=== PATIENT | female | born 1960 | race Caucasian/White ===

== ENCOUNTER 2016-12-22 09:18 | Emergency (ER) | payer OTHER, MEDICAID ==
[2016-12-22 09:34] VITALS: BP 123/68; PULSE 80; RESP 16; TEMP 98.8; O2SAT 96
[2016-12-22] MEDS ORDERED: IBUPROFEN 600 MG TAB PO ONE (09:40)
[2016-12-22] MEDS ORDERED: LIDOCAINE 2% JELLY 5 ML TUBE TP ONE (09:40)
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
[2016-12-22] MEDS ORDERED: ACETAMINOPHEN 325 MG TAB PO ONE (10:54)
[2016-12-22] MEDS ORDERED: ACETAMINOPHEN 325 MG TAB ONE (11:03)
== END 2016-12-22 11:40 | disposition home or self-care (01) ==
LOC: CED 09:18
DX: S92.402A Displaced unspecified fracture of left great toe, initial encounter for closed fracture (principal); S92.902A Unspecified fracture of left foot, initial encounter for closed fracture; S80.02XA Contusion of left knee, initial encounter; S50.02XA Contusion of left elbow, initial encounter; S93.402A Sprain of unspecified ligament of left ankle, initial encounter; F17.200 Nicotine dependence, unspecified, uncomplicated; S90.812A Abrasion, left foot, initial encounter; S90.512A Abrasion, left ankle, initial encounter; S80.212A Abrasion, left knee, initial encounter; S50.312A Abrasion of left elbow, initial encounter; V28.4XXA Motorcycle driver injured in noncollision transport accident in traffic accident, initial encounter; Y92.410 Unspecified street and highway as the place of occurrence of the external cause; Y99.8 Other external cause status; Y93.55 Activity, bike riding
CPT/HCPCS: 73080; 73562; 73630; 99284; L4386

== ENCOUNTER → 2016-12-27 | Outpatient (CLI) | payer OTHER, MEDICAID | LOC: FIMAGING 09:13 | PROVIDERS: ATTEND Family Medicine | DX: M54.5 Low back pain (principal); M51.36 Other intervertebral disc degeneration, lumbar region; M54.12 Radiculopathy, cervical region ==

== ENCOUNTER 2016-12-29 10:14 | Emergency (ER) | payer OTHER, MEDICAID ==
[2016-12-29 10:28] VITALS: TEMP 98
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
[2016-12-29 11:28] VITALS: BP 111/59; PULSE 70; RESP 16; O2SAT 93
== END 2016-12-29 11:17 | disposition home or self-care (01) ==
LOC: CED 10:14
DX: S92.902D Unspecified fracture of left foot, subsequent encounter for fracture with routine healing (principal); I50.9 Heart failure, unspecified; F17.200 Nicotine dependence, unspecified, uncomplicated; V29.9XXD Motorcycle rider (driver) (passenger) injured in unspecified traffic accident, subsequent encounter
CPT/HCPCS: 99283; L4386

== ENCOUNTER 2017-01-07 04:25 | Emergency (ER) | payer OTHER, MEDICAID ==
[2017-01-07] MEDS ORDERED: ALBUTEROL 3 ML DEYVIAL IH ONE (04:37)
[2017-01-07] MEDS ORDERED: methylPREDNISolone SOD SUCC 125 MG/2 ML VIAL IVP ONE (04:46)
[2017-01-07] MEDS ORDERED: RANITIDINE 50 MG/2 ML VIAL IVP ONE (04:46)
--- NOTE | 2017-01-07 04:57 | CPEKG ---
Heart Rate: 63 RR Interval: 952 P-R Interval: 164 QRSD Interval: 122 QT Interval: 468 QTC Interval: 480 P [place]: 79 QRS [place]: -49 T Wave [place]: 77 EKG Severity - ABNORMAL ECG - EKG Impression: SINUS RHYTHM EKG Impression: LEFT BUNDLE BRANCH BLOCK EKG Impression: When compared to the EKG from January 05, 2012 there is no significant change. EKG Impression: However, of note is that the bundle branch block pattern was not evident on EKG Impression: February 12, 2010 Electronically Signed By: Oh Bruce 07-Jan-2017 05:17:17
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
[2017-01-07] MEDS ORDERED: ONDANSETRON 4 MG/2 ML VIAL IVP ONE (05:05)
[2017-01-07] MEDS ORDERED: OXYMETAZOLINE 30 ML NASAL SPRAY EACHNARE ONE (05:07)
[2017-01-07 05:12] LABS: % IMMATURE GRANULYOCYTES 0.3 % (0.0-1.1); ABSOLUTE IMMATURE GRANULOCYTES 0.03 10^3/uL (0.00-0.10); ADD DIFF? NO; ADD MORPH? NO; ADD SCAN? NO; ATYPICAL LYMPHOCYTE FLAG 10 (0-99); FRAGMENT RBC FLAG 0 (0-99); HEMATOCRIT 41.1 % (38.0-47.0); HEMOGLOBIN 14.4 g/dL (12.6-16.3); LEFT SHIFT FLG 0 (0-99); LIPEMIA HEMOLYSIS FLAG 90 (0-99); MEAN CELL HEMOGLOBIN 33.8 pg (27.9-34.1); MEAN CELL VOLUME 96.5 fL (81.5-99.8); MEAN PLATELET VOLUME 8.9 fL (8.7-11.7); PLATELET CLUMPS FLAG 0 (0-99); PLATELET COUNT 460 10^3/uL (150-400); RED BLOOD CELL COUNT 4.26 10^6/uL (4.18-5.33); RED CELL DISTRIBUTION WIDTH 13.2 % (11.5-15.2)
[2017-01-07 05:25] LABS: ANION GAP 11 mEq/L (8-16); CALCIUM 9.4 mg/dL (8.5-10.4); CARBON DIOXIDE 27 mEq/l (22-31); CHLORIDE 101 mEq/L (97-110); CREATININE 0.9 mg/dL (0.6-1.0); GLOMERULAR FILTRATION RATE > 60; GLUCOSE 93 mg/dL (70-100); MAGNESIUM 1.7 mg/dL (1.6-2.3); POTASSIUM 4.1 mEq/L (3.5-5.2); SODIUM 139 mEq/L (134-144)
[2017-01-07 05:36] LABS: TROPONIN I < 0.012 ng/mL (0-0.034)
[2017-01-07] MEDS ORDERED: NS 500 ML IV ONE ×2 (05:43→06:41)
[2017-01-07] MEDS ORDERED: IOPAMIDOL (ISOVUE 370) 100 ML BTL IV ONE (06:11)
[2017-01-07 07:01] VITALS: BP 112/67
[2017-01-07 07:19] VITALS: PULSE 78; RESP 18; TEMP 98; O2SAT 97
== END 2017-01-07 07:17 | disposition home or self-care (01) ==
LOC: CED 04:25
DX: T78.2XXA Anaphylactic shock, unspecified, initial encounter (principal); E86.9 Volume depletion, unspecified; F17.200 Nicotine dependence, unspecified, uncomplicated; T50.995A Adverse effect of other drugs, medicaments and biological substances, initial encounter; I50.9 Heart failure, unspecified; Z85.41 Personal history of malignant neoplasm of cervix uteri; M79.671 Pain in right foot
CPT/HCPCS: 71010; 71275; 73630; 93005; 96361; 96372; 96374; 96375; 99283; 99285; J0171; J1200; J2405; J2780; Q9967; 80048-PO; 83735-PO; 83880-PO; 84484-PO; 85025-PO; 85378-PO

== ENCOUNTER 2017-01-07 13:03 | Emergency (ER) | payer OTHER, MEDICAID ==
[2017-01-07 13:12] VITALS: BP 115/62; PULSE 82; RESP 18; TEMP 98.2; O2SAT 94
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
[2017-01-07] MEDS ORDERED: IBUPROFEN 200 MG TAB PO ONE (13:54)
== END 2017-01-07 14:02 | disposition home or self-care (01) ==
LOC: CED 13:03
DX: S90.31XA Contusion of right foot, initial encounter (principal); F17.200 Nicotine dependence, unspecified, uncomplicated; W05.2XXA Fall from non-moving motorized mobility scooter, initial encounter
CPT/HCPCS: 73630-PO

== ENCOUNTER → 2017-01-23 | Outpatient (CLI) | payer OTHER, MEDICAID | LOC: BRMIMAGING 11:18 | PROVIDERS: ATTEND Family Medicine | DX: Z12.31 Encounter for screening mammogram for malignant neoplasm of breast (principal); Z85.41 Personal history of malignant neoplasm of cervix uteri | CPT/HCPCS: G0202 ==

== ENCOUNTER → 2018-01-25 | Outpatient (CLI) | payer OTHER, MEDICAID | LOC: BRMIMAGING 13:33 | PROVIDERS: ATTEND Family Medicine | DX: Z12.31 Encounter for screening mammogram for malignant neoplasm of breast (principal) ==

== ENCOUNTER → 2018-02-24 | Outpatient (CLI) | payer OTHER, MEDICAID | LOC: CIMAGING 11:12 | PROVIDERS: ATTEND Family Medicine | DX: J98.4 Other disorders of lung (principal) | CPT/HCPCS: 71046-PO; 80307; G0483 ==

== ENCOUNTER → 2018-04-01 | Outpatient (CLI) | payer OTHER, MEDICAID | LOC: BHFA 08:30 | PROVIDERS: ATTEND Internal Medicine Interventional Cardiology | DX: R94.31 Abnormal electrocardiogram [ECG] [EKG] (principal); R06.02 Shortness of breath | CPT/HCPCS: 78452; 93017; 93306; A9500; J2785 ==